=== PATIENT | female | born 1995 | race Caucasian/White ===

== ENCOUNTER 2018-05-11 00:20 | Emergency (ER) | payer BC, OTHER ==
[~2018-05-11] VITALS: Ht 180.3 cm; Wt 41.3 kg
[2018-05-11 00:38] VITALS: Ht 180.3 cm; Wt 41.3 kg
[2018-05-11] MEDS ORDERED: ONDANSETRON (ODT) 4 MG TAB ODT STA (01:04)
--- NOTE | 2018-05-11 01:16 | ERD ---
ER Documentation Chief Complaint Chief Complaint C/O RT UPPER QUADRANT AP RADIATING TO BACK X1.5HRS, C/O NAUSEA HPI This is a 22-year-old female presents emergency department with complaints of right upper abdominal pain that engaged back. Vomited twice with nonbilious nonbloody emesis. LMP: Stated it she finished 2 weeks ago. . Denies headache, head injury, loss of consciousness, dizziness, neck pain, neck stiffness, throat pain, difficulty swallowing, difficulty breathing lying flat, shoulder pain, chest pain, back pain, constipation, diarrhea, urinary symptoms, or possibility being , loss of bowel and bladder control, trauma, injury, falls, difficulty walking due to pain, numbness or tingling sensation, calf pain, recent travel, recent major surgery in the last 3 weeks, calf pain, recent long travel, recent exposure to any illness, recent antibiotic use in the last 3 months, fever, chills, seizures. Past medical history: Surgical history: Social: Denies smoking, use of alcoholic beverages, use of illegal drugs. ROS All systems reviewed and are negative except as per history of present illness. Medications Home Meds Active Scripts Famotidine* (Pepcid*) 20 Mg Tablet, 20 MG PO DAILY for 30 Days, TAB Prov:SHALOM GALLO F 05/11/18 Ondansetron Hcl* (Zofran*) 4 Mg Tablet, 4 MG PO Q8H PRN for NAUSEA AND/OR V OMITING, #30 TAB Prov:HALLEILAATUL OATESAR F 05/11/18 Acetaminophen* (Tylophen*) 500 Mg Capsule, 1 CAP PO Q6H PRN for PAIN AND OR ELEVATED TEMP, #20 CAP Prov:PASILABANATULAR F 05/11/18 Ibuprofen* (Motrin*) 400 Mg Tab, 400 MG PO Q6H PRN for PAIN AND OR ELEVATED TEMP, #30 TAB Prov:PASILABANATULAR F 05/11/18 Allergies Allergies: Coded Allergies: No Known Allergy (Unverified , 05/11/18) Physical Exam Vitals Vital Signs Date Temp Pulse Resp B/P (MAP) Pulse Ox O2 O2 Flow FiO2 Time Delivery Rate 05/11/18 97.9 70 20 112/71 98 00:38 (85) Physical Exam Const: No acute distress Head: Atraumatic Eyes: Normal Conjunctiva ENT: Normal External Ears, Nose and Mouth. Neck: Full range of motion. No meningismus. Resp: Clear to auscultation bilaterally Cardio: Regular rate and rhythm, no murmurs Abd: Soft, non tender, non distended. Normal bowel sounds. Has right upper abdominal tenderness to light and deep palpation. Negative [place] sign (heel jar test). Negative Rovsing sign. Able to jump 10 times without developing lower abdominal pain. Skin: No petechiae or rashes Back: No midline or flank tenderness Ext: No cyanosis, or edema Neur: Awake and alert. No neurological deficit. Psych: Normal Mood and Affect Result Diagram: 05/11/18 0116 05/11/18 0116 Results 24 hrs Laboratory Tests Test 05/11/18 01:16 05/11/18 01:37 White Blood Count 7.8 10^3/ul Red Blood Count 4.23 10^6/ul Hemoglobin 13.0 g/dl Hematocrit 39.5 % Mean Corpuscular Volume 93.4 fl Mean Corpuscular Hemoglobin 30.7 pg Mean Corpuscular Hemoglobin Concent 32.9 g/dl Red Cell Distribution Width 13.0 % Platelet Count 194 10^3/UL Mean Platelet Volume 9.5 fl Immature Granulocytes % 0.100 % Neutrophils % 58.5 % Lymphocytes % 35.3 % Monocytes % 4.6 % Eosinophils % 1.0 % Basophils % 0.5 % Nucleated Red Blood Cells % 0.0 /100WBC Immature Granulocytes # 0.010 10^3/ul Neutrophils # 4.6 10^3/ul Lymphocytes # 2.8 10^3/ul Monocytes # 0.4 10^3/ul Eosinophils # 0.1 10^3/ul Basophils # 0.0 10^3/ul Nucleated Red Blood Cells # 0.0 10^3/ul Urine Color YELLOW Urine Clarity SLIGHTLY CLOUDY Urine pH 5.0 Urine Specific [place] 1.019 Urine Ketones TRACE mg/dL Urine Nitrite NEGATIVE mg/dL Urine Bilirubin NEGATIVE mg/dL Urine Urobilinogen NEGATIVE mg/dL Urine Leukocyte Esterase NEGATIVE Brad/ul Urine Microscopic RBC 3 /HPF Urine Microscopic WBC 4 /HPF Urine Squamous Epithelial Cells FEW /HPF Urine Mucus FEW /HPF Urine Hemoglobin NEGATIVE mg/dL Urine Glucose NEGATIVE mg/dL Urine Total Protein NEGATIVE mg/dl Sodium Level 139 mmol/L Potassium Level 3.7 mmol/L Chloride Level 101 mmol/L Carbon Dioxide Level 31 mmol/L Anion Gap 7 Blood Urea Nitrogen 14 mg/dl Creatinine 0.52 mg/dl Est Glomerular Filtrat Rate mL/min > 60 mL/min Glucose Level 115 mg/dl Calcium Level 9.5 mg/dl Total Bilirubin 0.4 mg/dl Direct Bilirubin 0.00 mg/dl Indirect Bilirubin 0.4 mg/dl Aspartate Amino Transf (AST/SGOT) 22 IU/L Alanine Aminotransferase (ALT/SGPT) 16 IU/L Alkaline Phosphatase 44 IU/L Total Protein 7.1 g/dl Albumin 4.3 g/dl Globulin 2.80 g/dl Albumin/Globulin Ratio 1.53 Amylase Level 72 U/L Lipase 57 U/L POC Beta HCG, Qualitative NEGATIVE Current Medications Medications Dose Sig/Shae Start Time Status Last (Trade) Ordered Route PRN Stop Time Admin Dose Reason Admin Ondansetron 4 mg ONCE STAT 05/11/18 DC 05/11/18 HCl (Zofran ODT 01:04 01:19 Odt) 05/11/18 01:06 40 ml ONCE ONCE 05/11/18 DC 05/11/18 Miscellaneous PO 01:30 01:19 Medication 05/11/18 01:31 (Gi Cocktail (2)) Procedures/MDM Diagnostic tests: POC urine : Negative. Urinalysis: Reviewed. Culture urine: Sent. Blood works: Reviewed. Gallbladder ultrasound: Study slightly limited by bowel gas. No definite acute abnormality. Treatment: Zofran ODT. GI cocktail. Re-evaluation: Denies abdominal pain. No episode of emesis here in the emergency department. Negative [place] sign. Negative [place] sign (heel jar test). Negative psoas sign. Negative Rovsing sign. Able to jump 10 times without developing lower abdominal pain. No CVA tenderness. Ambulatory with steady gait and without pain to abdomen. Stated that she feels much better at this time and that she is ready to go home. Differential diagnosis: I have low suspicion for pancreatitis, cholecystitis, diverticulitis, diverticulitis with abscess, appendicitis, nephrolithiasis, pyelonephritis, septic stone, obstructing kidney stone, sepsis, severe dehydration. Final diagnosis: Abdominal pain. Prescription: Tylenol. Motrin. Zofran. Pepcid. Follow-up with PCP in the next 24-48 hours. Come back here in the emergency department for any new symptoms or any worsening symptoms. All questions and concerns were answered. Patient and family members verbalized understanding and agreed with plan of care. Hemodynamically stable on discharge. Departure Diagnosis: Primary Impression: Abdominal pain Condition: Stable Additional Instructions: Follow-up with PCP in the next 24-48 hours. Come back here in the emergency department for any new symptoms or any worsening symptoms. SHALOM GALLO May 11, 2018 01:16
[2018-05-11] MEDS ORDERED: LIDOCAINE/MYLANTA 40 ML BTL PO ONE (01:30)
[2018-05-11] MEDS ORDERED: IBUP-1561 PO (03:16)
[2018-05-11] MEDS ORDERED: ACET500C5 PO (03:16)
[2018-05-11] MEDS ORDERED: ONDA4TAB8 PO (03:16)
[2018-05-11] MEDS ORDERED: FAMO-96 PO (03:17)
[2018-05-11 03:27] VITALS: BP 108/67; PULSE 80; RESP 18
== END 2018-05-11 03:29 | disposition home or self-care (01) ==
LOC: FTE 00:20
DX: R10.11 Right upper quadrant pain (principal); R11.10 Vomiting, unspecified
CPT/HCPCS: 36415; 76705; 80053; 81001; 81003; 81025; 82150; 83690; 85025; 87086

== ENCOUNTER 2018-08-22 15:54 | Emergency (ER) | payer SELFPAY ==
[~2018-08-22] VITALS: Ht 180.3 cm; Wt 40.3 kg
[~2018-08-22 15:54] MED LIST: ACET500C5 PO; FAMO-96 PO; IBUP-1561 PO; ONDA4TAB8 PO
[2018-08-22 16:09] VITALS: BP 111/54; PULSE 71; RESP 18; Ht 180.3 cm; Wt 40.3 kg
== END 2018-08-22 18:41 | disposition left against medical advice (07) ==
LOC: FTE 15:54
DX: Z53.21 Procedure and treatment not carried out due to patient leaving prior to being seen by health care provider (principal)